=== PATIENT | male | born 1945 | race Caucasian/White ===

== ENCOUNTER 2017-07-06 12:00 | Emergency (ER) | payer MEDICARE, BC ==
--- NOTE | 2017-07-06 12:41 | EDM.PDOC ---
ED HPI GENERAL MEDICAL PROBLEM - General Chief Complaint: Neuro Symptoms/Deficits Stated Complaint: STROKE? Time Seen by Provider: 07/06/17 12:36 Source of Information: Reports: Patient, Family History Limitations: Reports: No Limitations - History of Present Illness INITIAL COMMENTS - FREE TEXT/NARRATIVE: pt has been dragging hs left leg and he has some numbness in the left hand and weakness on the left arm. Onset: Gradual Duration: Day(s): Location: Reports: Upper Extremity, Left, Lower Extremity, Right Associated Symptoms: Reports: No Other Symptoms - Related Data Allergies Allergy/AdvReac Type Severity Reaction Status Date / Time No Known Allergies Allergy Verified 01/23/16 07:41 Home Meds: Home Meds Aspirin [Children's Aspirin] 81 mg PO DAILY 02/20/15 [History] Hydrochlorothiazide/Lisinopril [Lisinopril-HCTZ 20-25 MG] 1 tab PO DAILY [History] Insulin Glarg,Human.Rec.Analog [LantUS Solostar] 50 unit SUBCUT BEDTIME [History] Insulin Lispro [Humalog] 20 unit SQ TIDMEALS 02/20/15 [History] Latanoprost [Xalatan 0.005% Ophth Soln] 1 drop EYEBOTH BEDTIME 02/20/15 [History ] Levothyroxine Sodium [Synthroid] 150 mcg PO DAILY 02/20/15 [History] Metoprolol Tartrate [Lopressor] 100 mg PO BID 02/20/15 [History] Nitroglycerin [Nitrostat] 0.4 mg SL ASDIRECTED PRN 02/20/15 [History] atorvaSTATin [Lipitor] 40 mg PO BEDTIME 02/20/15 [History] Past Medical History HEENT History: Reports: Cataract, Glaucoma, Impaired Vision Cardiovascular History: Reports: CAD, High Cholesterol, Hypertension, [place], Stents Respiratory History: Reports: None Gastrointestinal History: Reports: Cholelithiasis Genitourinary History: Reports: Diabetic Nephropathy Musculoskeletal History: Reports: None Neurological History: Reports: None Psychiatric History: Reports: None Endocrine/Metabolic History: Reports: Diabetes, Type I, Hypothyroidism Hematologic History: Reports: None Immunologic History: Reports: None Oncologic (Cancer) History: Reports: None Dermatologic History: Reports: None - Infectious Disease History Infectious Disease History: Reports: None - Past Surgical History HEENT Surgical History: Reports: Cataract Surgery Cardiovascular Surgical History: Reports: Coronary Artery Stent GI Surgical History: Reports: Cholecystectomy, Colonoscopy, Hernia, Inguinal Neurological Surgical History: Reports: None Musculoskeletal Surgical History: Reports: Arthroscopic Knee Social & Family History - Family History Family Medical History: Noncontributory - Tobacco Use Smoking Status *Q: Never Smoker Years of Tobacco use: 25 Packs/Tins Daily: 1 Used Tobacco, but Quit: Yes Month Tobacco Last Used: 1987 Second Hand Smoke Exposure: No - Caffeine Use Caffeine Use: Reports: Coffee - Alcohol Use Days Per Week of Alcohol Use: 1 Number of Drinks Per Day: 1 Total Drinks Per Week: 1 - Recreational Drug Use Recreational Drug Use: No ED ROS GENERAL - Review of Systems Review Of Systems: See Below Constitutional: Reports: No Symptoms HEENT: Reports: No Symptoms Respiratory: Reports: Shortness of Breath, Wheezing, Cough Cardiovascular: Reports: No Symptoms Endocrine: Reports: No Symptoms GI/Abdominal: Reports: No Symptoms : Reports: No Symptoms Musculoskeletal: Reports: Other (pain in the left shoulder. ) Skin: Reports: No Symptoms Neurological: Reports: Other (weakness in the left arm and left leg--gradual onset. ) Psychiatric: Reports: No Symptoms Hematologic/Lymphatic: Reports: No Symptoms ED EXAM, NEURO - Physical Exam Exam: See Below Text/Narrative:: pt arrived with weakness in the left arm and left leg. He has been dragging the left leg. Exam Limited By: No Limitations General Appearance: Alert, No Apparent Distress, Other (pt is able to give a good history. ) Ears: Normal TMs Nose: Normal Inspection Throat/Mouth: Normal Inspection Head Exam: Atraumatic Neck: Normal Inspection Respiratory/Chest: No Respiratory Distress, Other (pt is slightly wheezy and is coughing some. He did have a recent course of zithromax. ) Cardiovascular: Regular Rate, Rhythm GI/Abdominal: Soft, Non-Tender (Male) Exam: Deferred Rectal (Males) Exam: Deferred Neurological: Alert, Oriented x 3, Other (pt is dragging his left leg. ) Back Exam: Normal Inspection Extremities: Other ( The left arm and the left leg are definitely weak. ) Psychiatric: Normal Affect Course - Vital Signs Last Recorded V/S: Last Vital Signs Temp 36.8 C 07/06/17 12:25 Pulse 59 L 07/06/17 12:25 Resp 14 03/04/18 12:25 BP 153/72 H 07/06/17 12:25 Pulse Ox 93 L 07/06/17 12:25 - Orders/Labs/Meds Orders: Active Orders 24 hr Category Date Time Status Chest 2V [CR] Stat Exams 07/06/17 12:35 Taken Chest w Cont [CT] Stat Exams 07/06/17 13:48 Taken Head wo Cont [CT] Stat Exams 07/06/17 12:30 Taken Shoulder Comp Lt [CR] Stat Exams 07/06/17 12:37 Taken Iopamidol [Isovue-300 (61%)] Med 07/06/17 14:00 Active 100 ml IV . DIRECTED Sodium Chloride 0.9% [Normal Saline] 100 ml Med 07/06/17 14:00 Active IV ASDIRECTED Medication Orders Sodium Chloride (Normal Saline) 100 mls @ 3 mls/sec IV ASDIRECTED MENDEL Last Admin: 07/06/17 14:26 Dose: 3 mls/sec Iopamidol (Isovue-300 (61%)) 100 ml IV . DIRECTED MENDEL Last Admin: 07/06/17 14:26 Dose: 100 ml Labs: Laboratory Tests 07/06/17 07/06/17 07/06/17 Range/Units 12:41 12:41 13:08 WBC 7.4 (4.5-11.0) K/uL RBC 4.72 (4.30-5.90) M/uL Hgb 14.4 (12.0-15.0) g/dL Hct 42.6 (40.0-54.0) % MCV 90 (80-98) fL MCH 31 (27-31) pg MCHC 34 (32-36) % Plt Count 245 (150-400) K/uL Neut % (Auto) 60 (36-66) % Lymph % (Auto) 29 (24-44) % [place] % (Auto) 10 H (2-6) % Eos % (Auto) 2 (2-4) % Baso % (Auto) 0 (0-1) % Sodium 141 (140-148) mmol/L Potassium 3.6 (3.6-5.2) mmol/L Chloride 105 (100-108) mmol/L Carbon Dioxide 28 (21-32) mmol/L Anion Gap 8.4 (5.0-14.0) mmol/L BUN 19 H (7-18) mg/dL Creatinine 0.9 (0.8-1.3) mg/dL Est Cr Clr Drug Dosing 81.43 mL/min Estimated GFR (MDRD) > 60 (>60) Glucose 194 H (74-106) mg/dL Calcium 9.2 (8.5-10.1) mg/dL Total Bilirubin 0.9 (0.2-1.0) mg/dL AST 20 (15-37) U/L ALT 24 (12-78) U/L Alkaline Phosphatase 54 (46-116) U/L Total Protein 6.4 (6.4-8.2) g/dL Albumin 3.1 L (3.4-5.0) g/dL Globulin 3.3 (2.3-3.5) g/dL Albumin/Globulin Ratio 0.9 L (1.2-2.2) Urine Color Yellow Urine Appearance Clear Urine pH 6.0 (4.5-8.0) Ur Specific [place] 1.020 (1.008-1.030) Urine Protein Negative (NEGATIVE) mg/dL Urine Glucose (UA) 1000 H (NEGATIVE) mg/dL Urine Ketones Negative (NEGATIVE) mg/dL Urine Occult Blood Trace (NEGATIVE) Urine Nitrite Negative (NEGAITVE) Urine Bilirubin Negative (NEGATIVE) Urine Urobilinogen 1 (NORMAL) mg/dL Ur Leukocyte Esterase Negative (NEGATIVE) Urine RBC 5-10 H (0-5) Urine WBC 0-5 (0-5) Ur Epithelial Cells Few Amorphous Sediment Not seen Urine Bacteria Few Urine Mucus Not seen Meds: Medications Generic Name Dose Route Start Last Admin Trade Name Freq PRN Reason Stop Dose Admin Sodium Chloride 100 mls @ 3 mls/sec 07/06/17 14:00 07/06/17 14:26 Normal Saline IV 3 mls/sec ASDIRECTED MENDEL Administration Iopamidol 100 ml 07/06/17 14:00 07/06/17 14:26 Isovue-300 (61%) IV 100 ml . DIRECTED MENDEL Administration - Re-Assessments/Exams Free Text/Narrative Re-Assessment/Exam: 07/06/17 15:46 cat scan of the head shows 2 masses in the rt cerebral area. They do have edema around them. He had a cat scan of the chest which shows a probable hilar mass. His lab work looks good. Departure - Departure Time of Disposition: 15:48 Disposition: DC/Tfer to Acute Hospital 02 Condition: Fair Clinical Impression: Mass of cerebral hemisphere, Mass of left lung, Diabetes - Discharge Information Referrals: Valente Epps MD [Primary Care Provider] - Forms: ED Department Discharge Care Plan Goals: transfer to [facility]. - My Orders Last 24 Hours: My Active Orders 07/06/17 12:30 Head wo Cont [CT] Stat 07/06/17 12:35 Chest 2V [CR] Stat 07/06/17 12:37 Shoulder Comp Lt [CR] Stat 07/06/17 13:48 Chest w Cont [CT] Stat 07/06/17 14:00 Iopamidol [Isovue-300 (61%)] 100 ml IV . DIRECTED Sodium Chloride 0.9% [Normal Saline] 100 ml IV ASDIRECTED - Assessment/Plan Last 24 Hours: My Active Orders 07/06/17 12:30 Head wo Cont [CT] Stat 07/06/17 12:35 Chest 2V [CR] Stat 07/06/17 12:37 Shoulder Comp Lt [CR] Stat 07/06/17 13:48 Chest w Cont [CT] Stat 07/06/17 14:00 Iopamidol [Isovue-300 (61%)] 100 ml IV . DIRECTED Sodium Chloride 0.9% [Normal Saline] 100 ml IV ASDIRECTED
[2017-07-06] MEDS ORDERED: Sodium Chloride 0.9% 100 ML IV SCH (14:00)
[2017-07-06] MEDS ORDERED: Iopamidol 612 MG/ML 100 ML Bottle IV SCH (14:00)
[2017-07-06 16:05] VITALS: BP 151/81
--- NOTE | 2017-07-07 10:47 | CR ---
CHEST: 2 view CLINICAL HISTORY:Cough and wheezing COMPARISON:None FINDINGS: There is streaky density in the left upper lobe. This is suspect for a pneumonic infiltrat e. Heart size and pulmonary vascularity are normal. There are prescribed changes in the aorta.. IMPRESSION: Patchy left upper lobe density, most likely pneumonic infiltrate
--- NOTE | 2017-07-07 10:49 | CR ---
SHOULDER LEFT Clinical history: Pain, limited range of motion Findings: No fracture or dislocation is seen. Articular surfaces are smooth. Impression: Negative
== END 2017-07-06 16:37 ==
LOC: JP.ED 12:00
DX: G93.89 Other specified disorders of brain (principal); R91.8 Other nonspecific abnormal finding of lung field; E78.00 Pure hypercholesterolemia, unspecified; I10 Essential (primary) hypertension; E10.21 Type 1 diabetes mellitus with diabetic nephropathy; E03.9 Hypothyroidism, unspecified; Z87.891 Personal history of nicotine dependence; Z79.82 Long term (current) use of aspirin; Z79.899 Other long term (current) drug therapy
CPT/HCPCS: 36415; 70450; 71046; 71260; 73030; 80053; 81001; 85025; 99285; J7030; Q9967

== ENCOUNTER 2017-08-21 01:24 | Emergency (ER) | payer MEDICARE, BC ==
[2017-08-21 01:36] VITALS: BP 83/49
--- NOTE | 2017-08-21 01:41 | EDM.PDOC ---
ED HPI GENERAL MEDICAL PROBLEM - General Chief Complaint: Respiratory Problem Stated Complaint: [facility] Time Seen by Provider: 08/21/17 01:25 Source of Information: Reports: Patient, EMS, Family History Limitations: Reports: No Limitations - History of Present Illness INITIAL COMMENTS - FREE TEXT/NARRATIVE: 71-year-old male with a recent diagnosis of metastatic lung cancer has started treatment, also was recently in the clinic and received doxycycline. Tonight he was getting up to go to the bathroom when he developed sudden shortness of breath. EMS was called and he was transported with O2 supplementation. surveillance monitor shows atrial fibrillation with a wide complex, the wide-complex correlates with past telemetry and EKGs but the atrial fibrillation is a new rhythm. Denies any new pain, no fever. Onset: Sudden (Thinks symptoms started rather suddenly tonight) Severity: Moderate Associated Symptoms: Reports: Cough, Malaise, Shortness of Breath, Weakness - Related Data Allergies Allergy/AdvReac Type Severity Reaction Status Date / Time No Known Allergies Allergy Verified 08/21/17 01:26 Home Meds: Home Meds Hydrochlorothiazide/Lisinopril [Lisinopril-HCTZ 20-25 MG] 1 tab PO DAILY [History] Insulin Glarg,Human.Rec.Analog [LantUS Solostar] 50 unit SUBCUT BEDTIME [History] Insulin Lispro [Humalog] 60 unit SQ QID 02/20/15 [History] Latanoprost [Xalatan 0.005% Ophth Soln] 1 drop EYEBOTH BEDTIME 02/20/15 [History ] Levothyroxine Sodium [Synthroid] 175 mcg PO DAILY 02/20/15 [History] Metoprolol Tartrate [Lopressor] 100 mg PO BID 02/20/15 [History] Nitroglycerin [Nitrostat] 0.4 mg SL ASDIRECTED PRN 02/20/15 [History] atorvaSTATin [Lipitor] 40 mg PO BEDTIME 02/20/15 [History] Dexamethasone 8 mg PO DAILY 08/21/17 [History] Doxycycline Monohydrate 100 mg PO BID 08/21/17 [History] Folic Acid 1 tab PO DAILY 08/21/17 [History] Prochlorperazine Maleate 10 mg PO Q6H PRN 08/21/17 [History] Tamsulosin [Flomax] 0.4 mg PO DAILY 08/21/17 [History] oxyCODONE 5 mg PO Q6H PRN 08/21/17 [History] Past Medical History HEENT History: Reports: Cataract, Glaucoma, Impaired Vision Cardiovascular History: Reports: CAD, High Cholesterol, Hypertension, [place], Stents Respiratory History: Reports: None Gastrointestinal History: Reports: Cholelithiasis Genitourinary History: Reports: Diabetic Nephropathy Musculoskeletal History: Reports: None Neurological History: Reports: None Psychiatric History: Reports: None Endocrine/Metabolic History: Reports: Diabetes, Type I, Hypothyroidism Hematologic History: Reports: None Immunologic History: Reports: None Oncologic (Cancer) History: Reports: None Dermatologic History: Reports: None - Infectious Disease History Infectious Disease History: Reports: None - Past Surgical History HEENT Surgical History: Reports: Cataract Surgery Cardiovascular Surgical History: Reports: Coronary Artery Stent GI Surgical History: Reports: Cholecystectomy, Colonoscopy, Hernia, Inguinal Neurological Surgical History: Reports: None Musculoskeletal Surgical History: Reports: Arthroscopic Knee Social & Family History - Family History Family Medical History: Noncontributory - Tobacco Use Smoking Status *Q: Never Smoker Years of Tobacco use: 25 Packs/Tins Daily: 1 Used Tobacco, but Quit: Yes Month/Year Tobacco Last Used: 1987 Second Hand Smoke Exposure: No - Caffeine Use Caffeine Use: Reports: Coffee - Alcohol Use Days Per Week of Alcohol Use: 1 Number of Drinks Per Day: 1 Total Drinks Per Week: 1 - Recreational Drug Use Recreational Drug Use: No ED ROS GENERAL - Review of Systems Review Of Systems: See Below Constitutional: Reports: Malaise, Weakness, Decreased Appetite HEENT: Reports: No Symptoms Respiratory: Reports: Shortness of Breath, Cough Cardiovascular: Denies: Chest Pain GI/Abdominal: Denies: Nausea, Vomiting ED EXAM, GENERAL - Physical Exam Exam: See Below Exam Limited By: No Limitations General Appearance: Alert, No Apparent Distress Eye Exam: Bilateral Eye: EOMI Throat/Mouth: Normal Inspection Respiratory/Chest: No Respiratory Distress, Lungs Clear Cardiovascular: Tachycardia, Irregularly Irregular GI/Abdominal: Soft, Non-Tender Extremities: No Pedal Edema Neurological: Alert, Oriented Psychiatric: Flat Affect Skin Exam: Warm, Dry Course - Vital Signs Last Recorded V/S: Last Vital Signs Temp 97.5 F 08/21/17 01:30 Pulse 124 H 08/21/17 01:30 Resp 19 08/21/17 01:30 BP 83/49 L 08/21/17 01:30 Pulse Ox 94 L 08/21/17 01:30 - Orders/Labs/Meds Orders: Active Orders 24 hr Category Date Time Status Chest 1V Frontal [CR] Stat Exams 08/21/17 01:36 Taken Labs: Laboratory Tests 08/21/17 08/21/17 Range/Units 01:36 01:40 WBC 9.7 (4.5-11.0) K/uL RBC 4.39 (4.30-5.90) M/uL Hgb 13.7 (12.0-15.0) g/dL Hct 39.7 L (40.0-54.0) % MCV 90 (80-98) fL MCH 31 (27-31) pg MCHC 35 (32-36) % Plt Count 69 L (150-400) K/uL Neut % (Auto) 83 H (36-66) % Lymph % (Auto) 11 L (24-44) % [place] % (Auto) 6 (2-6) % Eos % (Auto) 0 L (2-4) % Baso % (Auto) 0 (0-1) % Sodium 136 L (140-148) mmol/L Potassium 4.0 (3.6-5.2) mmol/L Chloride 100 (100-108) mmol/L Carbon Dioxide 25 (21-32) mmol/L Anion Gap 15.0 H (5.0-14.0) mmol/L BUN 25 H (7-18) mg/dL Creatinine 1.1 (0.8-1.3) mg/dL Est Cr Clr Drug Dosing 66.63 mL/min Estimated GFR (MDRD) > 60 (>60) Glucose 290 H (74-106) mg/dL Calcium 8.9 (8.5-10.1) mg/dL Troponin I 0.233 H* (0.000-0.056) ng/mL Meds: Medications Discontinued Medications Generic Name Dose Route Start Last Admin Trade Name Freq PRN Reason Stop Dose Admin Sodium Chloride 1,000 mls @ 500 mls/hr 08/21/17 02:00 08/21/17 01:55 Normal Saline IV 500 mls/hr ASDIRECTED MENDEL Administration - Re-Assessments/Exams Free Text/Narrative Re-Assessment/Exam: 08/21/17 02:15 Discussed this case with the hospitalist in [facility], Doctor Devora kindly accepted him in transfer. CBC was relatively normal, BMP showed a slightly elevated BUN and a glucose of 290. Troponin was elevated at 0.23. IV fluids were initiated and the patient was arranged for transfer. Departure - Departure Time of Disposition: 02:57 Disposition: DC/Tfer to Other 70 Condition: Poor Clinical Impression: Atrial fibrillation with rapid ventricular response Metastatic primary lung cancer Qualifiers: Laterality: left Qualified Code(s): C34.92 - Malignant neoplasm of unspecified part of left bronchus or lung - Discharge Information Referrals: Valente Epps MD [Primary Care Provider] - Forms: ED Department Discharge Care Plan Goals: Patient is be transferred by EMS to [facility] for oncology and cardiology evaluation. - My Orders Last 24 Hours: My Active Orders 08/21/17 01:36 Chest 1V Frontal [CR] Stat - Assessment/Plan Last 24 Hours: My Active Orders 08/21/17 01:36 Chest 1V Frontal [CR] Stat
[2017-08-21] MEDS ORDERED: Sodium Chloride 0.9% 1,000 ML IV SCH (02:00)
--- NOTE | 2017-08-21 09:27 | CR ---
Chest 1V Frontal HISTORY: Dyspnea COMPARISON: CT chest 07/06/2017 FINDINGS: Consolidative change in the left upper lobe this was present on the prior CT scan this has not completely resolved. This could be inflammatory however neoplastic process not entirely excluded. The right lung is clear. No acute congestive change. Cardiac size stable. No effusions. Impression: Consolidative change left perihilar region increased from chest radiograph 07/06/2017. This could be in flammatory. Neoplasm not excluded recommend continued follow-up to confirm improvement as well as cor relation with clinical symptomology if this fits with typical pneumonia symptomology.
== END 2017-08-21 03:00 | disposition other institution (70) ==
LOC: JP.ED 01:24
DX: I48.91 Unspecified atrial fibrillation (principal); C34.92 Malignant neoplasm of unspecified part of left bronchus or lung; E78.00 Pure hypercholesterolemia, unspecified; I10 Essential (primary) hypertension; I25.2 Old myocardial infarction; E10.21 Type 1 diabetes mellitus with diabetic nephropathy; E03.9 Hypothyroidism, unspecified; Z79.899 Other long term (current) drug therapy; Z87.891 Personal history of nicotine dependence
CPT/HCPCS: 36415; 71045; 80048; 84484; 85025; 96360; 99285; J7040

== ENCOUNTER 2017-11-09 10:54 | Inpatient (IN) | payer MEDICARE, BC ==
--- NOTE | 2017-11-09 11:35 | EDM.PDOC ---
ED HPI GENERAL MEDICAL PROBLEM - General Chief Complaint: General Stated Complaint: MEDICAL [facility] Time Seen by Provider: 11/09/17 11:13 Source of Information: Reports: Patient, Family, RN Notes Reviewed History Limitations: Reports: Physical Impairment - History of Present Illness INITIAL COMMENTS - FREE TEXT/NARRATIVE: 72-year-old gentleman presents to the emergency department today via EMS services for increasing weakness and confusion with combative behaviors. He has a known history of lung cancer with metastases to the brain has completed 10 round dose of radiation therapy and is currently on chemotherapy with one dose remaining. This morning his had difficulty getting him out of bed feels she can no longer take care of him at home - Related Data Allergies Allergy/AdvReac Type Severity Reaction Status Date / Time No Known Allergies Allergy Verified 10/29/17 12:08 Home Meds: Home Meds Insulin Glarg,Human.Rec.Analog [LantUS Solostar] 50 unit SUBCUT BEDTIME [History] Insulin Lispro [Humalog] 60 unit SQ QID 02/20/15 [History] Latanoprost [Xalatan 0.005% Ophth Soln] 1 drop EYEBOTH BEDTIME 02/20/15 [History ] Levothyroxine Sodium [Synthroid] 175 mcg PO DAILY 02/20/15 [History] Metoprolol Tartrate [Lopressor] 75 mg PO BID 02/20/15 [History] Nitroglycerin [Nitrostat] 0.4 mg SL ASDIRECTED PRN 02/20/15 [History] Dexamethasone 8 mg PO DAILY 08/21/17 [History] Folic Acid 1 tab PO DAILY 08/21/17 [History] Prochlorperazine Maleate 10 mg PO Q6H PRN 08/21/17 [History] Tamsulosin [Flomax] 0.4 mg PO DAILY 08/21/17 [History] oxyCODONE 5 mg PO Q6H PRN 08/21/17 [History] Magnesium Chloride [Mag-64] 64 mg PO DAILY 11/09/17 [History] Rivaroxaban [Xarelto] 20 mg PO DAILY 11/09/17 [History] Past Medical History HEENT History: Reports: Cataract, Glaucoma, Impaired Vision Cardiovascular History: Reports: CAD, High Cholesterol, Hypertension, CT, Stents Gastrointestinal History: Reports: Cholelithiasis Genitourinary History: Reports: Diabetic Nephropathy Other Neuro History: brain lesions Endocrine/Metabolic History: Reports: Diabetes, Type I, Hypothyroidism Oncologic (Cancer) History: Reports: Lung Other Oncologic History: stage 4 lung cancer - Past Surgical History HEENT Surgical History: Reports: Cataract Surgery Cardiovascular Surgical History: Reports: Coronary Artery Stent GI Surgical History: Reports: Cholecystectomy, Colonoscopy, Hernia, Inguinal Neurological Surgical History: Reports: None Musculoskeletal Surgical History: Reports: Arthroscopic Knee Social & Family History - Family History Family Medical History: Noncontributory - Tobacco Use Smoking Status *Q: Unknown Ever Smoked - Caffeine Use Caffeine Use: Reports: Coffee - Recreational Drug Use Recreational Drug Use: No ED ROS GENERAL - Review of Systems Review Of Systems: Unable To Obtain ED EXAM, GENERAL - Physical Exam Exam: See Below Free Text/Narrative:: General: Elderly male, ill-appearing, alert and oriented x0 HEENT: head is atraumatic normocephalic, eyes pupils equal round reactive to light, sclera clear no conjunctivitis appreciated. Ears tympanic membranes clear and simon landmarks and light reflex are present bilaterally canals are clear. Nose no septal deviation, nares are clear, no blood present. Mouth mucosa is moist and pink no erythema or exudate noted in soft palate, tongue is midline uvula is midline, dentition is intact. Neck: Supple no thyromegaly no tracheal deviation. Nodes: Cervical nodes subclavicular nodes nontender no palpable lymphadenopathy noted. Lungs: clear to auscultation bilaterally with symmetrical respirations, no adventitious noise appreciated. CV: Regular rate and rhythm S1 and S2 appreciated no murmurs rubs or gallops noted. Abdomen: Soft, nontender, no palpable masses or organomegaly appreciated, no distention no guarding bowel sounds are present, . Neuro: Cranial nerves II through XII grossly intact Skin: Warm and dry, intact Extremities: Tremor is noted in the right hand, No lower extremity edema appreciated, pedal pulse is +2. Course - Vital Signs Last Recorded V/S: Last Vital Signs Temp 96.7 F 11/09/17 11:02 Pulse 97 11/09/17 11:02 Resp 16 11/09/17 11:02 BP 110/71 11/09/17 11:02 Pulse Ox 94 L 11/09/17 11:02 - Orders/Labs/Meds Orders: Active Orders 24 hr Category Date Time Status UA W/MICROSCOPIC [URIN] Urgent Lab 11/09/17 12:59 Ordered Labs: Laboratory Tests 11/09/17 11/09/17 11/09/17 Range/Units 11:45 11:45 12:48 WBC 3.8 L (4.5-11.0) K/uL RBC 2.21 L (4.30-5.90) M/uL Hgb 7.4 L D (12.0-15.0) g/dL Hct 22.2 L (40.0-54.0) % MCV 101 H (80-98) fL MCH 34 H (27-31) pg MCHC 33 (32-36) % Plt Count 55 L (150-400) K/uL Neut % (Auto) 52 (36-66) % Lymph % (Auto) 37 (24-44) % [place] % (Auto) 11 H (2-6) % Eos % (Auto) 0 L (2-4) % Baso % (Auto) 0 (0-1) % Sodium 141 (140-148) mmol/L Potassium 3.7 (3.6-5.2) mmol/L Chloride 106 (100-108) mmol/L Carbon Dioxide 26 (21-32) mmol/L Anion Gap 8.8 (5.0-14.0) mmol/L BUN 23 H (7-18) mg/dL Creatinine 0.9 (0.8-1.3) mg/dL Est Cr Clr Drug Dosing 70.35 mL/min Estimated GFR (MDRD) > 60 (>60) Glucose 219 H (74-106) mg/dL Lactic Acid 4.4 H (0.4-2.0) mmol/L Calcium 9.5 (8.5-10.1) mg/dL Total Bilirubin 0.7 (0.2-1.0) mg/dL AST 17 (15-37) U/L ALT 23 (12-78) U/L Alkaline Phosphatase 50 (46-116) U/L Total Protein 5.6 L (6.4-8.2) g/dL Albumin 2.6 L (3.4-5.0) g/dL Globulin 3.0 (2.3-3.5) g/dL Albumin/Globulin Ratio 0.9 L (1.2-2.2) Urine Color Urine Appearance Urine pH (4.5-8.0) Ur Specific [place] (1.008-1.030) Urine Protein (NEGATIVE) mg/dL Urine Glucose (UA) (NEGATIVE) mg/dL Urine Ketones (NEGATIVE) mg/dL Urine Occult Blood (NEGATIVE) Urine Nitrite (NEGAITVE) Urine Bilirubin (NEGATIVE) Urine Urobilinogen (NORMAL) mg/dL Ur Leukocyte Esterase (NEGATIVE) Urine RBC (0-5) Urine WBC (0-5) Ur Epithelial Cells Amorphous Sediment Urine Bacteria Urine Mucus 11/09/17 Range/Units 12:59 WBC (4.5-11.0) K/uL RBC (4.30-5.90) M/uL Hgb (12.0-15.0) g/dL Hct (40.0-54.0) % MCV (80-98) fL MCH (27-31) pg MCHC (32-36) % Plt Count (150-400) K/uL Neut % (Auto) (36-66) % Lymph % (Auto) (24-44) % [place] % (Auto) (2-6) % Eos % (Auto) (2-4) % Baso % (Auto) (0-1) % Sodium (140-148) mmol/L Potassium (3.6-5.2) mmol/L Chloride (100-108) mmol/L Carbon Dioxide (21-32) mmol/L Anion Gap (5.0-14.0) mmol/L BUN (7-18) mg/dL Creatinine (0.8-1.3) mg/dL Est Cr Clr Drug Dosing mL/min Estimated GFR (MDRD) (>60) Glucose (74-106) mg/dL Lactic Acid (0.4-2.0) mmol/L Calcium (8.5-10.1) mg/dL Total Bilirubin (0.2-1.0) mg/dL AST (15-37) U/L ALT (12-78) U/L Alkaline Phosphatase (46-116) U/L Total Protein (6.4-8.2) g/dL Albumin (3.4-5.0) g/dL Globulin (2.3-3.5) g/dL Albumin/Globulin Ratio (1.2-2.2) Urine Color Yellow Urine Appearance Clear Urine pH 6.5 (4.5-8.0) Ur Specific [place] 1.015 (1.008-1.030) Urine Protein Negative (NEGATIVE) mg/dL Urine Glucose (UA) 100 H (NEGATIVE) mg/dL Urine Ketones Negative (NEGATIVE) mg/dL Urine Occult Blood Negative (NEGATIVE) Urine Nitrite Negative (NEGAITVE) Urine Bilirubin Negative (NEGATIVE) Urine Urobilinogen Normal (NORMAL) mg/dL Ur Leukocyte Esterase Negative (NEGATIVE) Urine RBC 0-5 (0-5) Urine WBC 0-5 (0-5) Ur Epithelial Cells Few Amorphous Sediment Not seen Urine Bacteria Few Urine Mucus Not seen Departure - Departure Time of Disposition: 14:02 Disposition: Admitted As Inpatient 65 Condition: Poor Clinical Impression: Metastatic primary lung cancer Qualifiers: Laterality: left Qualified Code(s): C34.92 - Malignant neoplasm of unspecified part of left bronchus or lung - Discharge Information Referrals: PCP,None [Primary Care Provider] - Forms: ED Department Discharge - My Orders Last 24 Hours: My Active Orders 11/09/17 12:59 UA W/MICROSCOPIC [URIN] Urgent - Assessment/Plan Last 24 Hours: My Active Orders 11/09/17 12:59 UA W/MICROSCOPIC [URIN] Urgent Plan: Assessment Acuity = acute Site and laterality = weakness with behavioral outbursts complicated patient with known history stage IV lung cancer with metastases to the brain Etiology = progression of cancer Manifestations = confusion Location of injury = Home Lab values = WBC low at 3.8 consistent leukopenia hemoglobin 7.4 consistent with macro chromic anemia platelets low at 55 consistent thrombocytopenia lactic acid elevated at 4.4 consistent lactic acidosis albumin low at 2.6 consistent with hypoalbuminemia, urinalysis unremarkable Plan Called discussed case with hospitalist steel division supervisor he agreed to come and evaluate the patient for admission I did discuss with family the need for group home placement for more supportive care and resources as well as consider hospice consult This note was dictated using [employer] voice recognition software please call with any questions on syntax or grammar.
--- NOTE | 2017-11-09 14:27 | PCM.HP ---
H&P History of Present Illness - General Date of Service: 11/09/17 Admit Problem/Dx: Admission Diagnosis/Problem Admission Diagnosis/Problem Pancytopenia Source of Information: Patient, Family, Provider History Limitations: Reports: Altered Mental Status - History of Present Illness Initial Comments - Free Text/Narative: Keith presents to the emergency room today with generalized weakness. He is not very talkative and says he feels fine so most of his history is gathered from his . She reports that he has been slowly going downhill over several months. He has become progressively weak and had intermittent episodes of agitation. His most recent chemotherapy was about one week ago. He has had previous radiation to his brain for metastatic lung cancer. Yesterday his dexamethasone was reduced from 8-6 mg daily. Today she reports that he was so weak she could not get him out of bed. She has noticed some difficulty with constipation but otherwise has not noticed much out of the ordinary. He does not currently endorse shortness of breath, chest pain, abdominal pain or nausea. She does not feel like he would be safe at home at this time because he is so weak. She has not noticed any fevers or shaking chills. Workup in the emergency room has revealed pancytopenia presumably secondary to his chemotherapy. He is very weak and unable to stand on his own. There is no sign of infection as of now. Because of his profound weakness he will need to be admitted for hydration with suspected dehydration as well as further monitoring and strengthening. - Related Data Allergies/Adverse Reactions: Allergies Allergy/AdvReac Type Severity Reaction Status Date / Time No Known Allergies Allergy Verified 10/29/17 12:08 Home Medications: Home Meds Insulin Glarg,Human.Rec.Analog [LantUS Solostar] 32 unit SUBCUT BEDTIME [History] Insulin Lispro [Humalog] 4 unit SQ TIDAC 02/20/15 [History] Latanoprost [Xalatan 0.005% Ophth Soln] 1 drop EYEBOTH BEDTIME 02/20/15 [History ] Levothyroxine Sodium [Synthroid] 175 mcg PO DAILY 02/20/15 [History] Nitroglycerin [Nitrostat] 0.4 mg SL ASDIRECTED PRN 02/20/15 [History] Dexamethasone 6 mg PO DAILY 08/21/17 [History] Folic Acid 1 tab PO DAILY 08/21/17 [History] Tamsulosin [Flomax] 0.4 mg PO DAILY 08/21/17 [History] Magnesium Chloride [Mag-64] 64 mg PO DAILY 11/09/17 [History] Metoprolol Succinate 75 mg PO DAILY 11/09/17 [History] Rivaroxaban [Xarelto] 20 mg PO DAILY 11/09/17 [History] Past Medical History HEENT History: Reports: Cataract, Glaucoma, Impaired Vision Cardiovascular History: Reports: CAD, High Cholesterol, Hypertension, [place], Stents Respiratory History: Reports: None Gastrointestinal History: Reports: Cholelithiasis Genitourinary History: Reports: Diabetic Nephropathy Musculoskeletal History: Reports: None Neurological History: Reports: None Other Neuro History: brain lesions Psychiatric History: Reports: None Endocrine/Metabolic History: Reports: Diabetes, Type I, Hypothyroidism Hematologic History: Reports: None Immunologic History: Reports: None Oncologic (Cancer) History: Reports: Lung Other Oncologic History: stage 4 lung cancer Dermatologic History: Reports: None - Infectious Disease History Infectious Disease History: Reports: None - Past Surgical History HEENT Surgical History: Reports: Cataract Surgery Cardiovascular Surgical History: Reports: Coronary Artery Stent GI Surgical History: Reports: Cholecystectomy, Colonoscopy, Hernia, Inguinal Neurological Surgical History: Reports: None Musculoskeletal Surgical History: Reports: Arthroscopic Knee Social & Family History - Family History Family Medical History: Noncontributory - Tobacco Use Smoking Status *Q: Unknown Ever Smoked - Caffeine Use Caffeine Use: Reports: Coffee - Alcohol Use Alcohol Use History: No - Recreational Drug Use Recreational Drug Use: No H&P Review of Systems - Review of Systems: Review Of Systems: See Below Free Text/Narrative: A complete 12 point review of systems was obtained. Pertinent positives and negatives are noted in the history of present illness. All other systems were reviewed and were negative except as noted. Exam - Exam Exam: See Below - Vital Signs Vital Signs: Last Vital Signs Temp 35.9 C 11/09/17 11:02 Pulse 97 11/09/17 11:02 Resp 16 11/09/17 11:02 BP 110/71 11/09/17 11:02 Pulse Ox 94 L 11/09/17 11:02 Weight: 68.039 kg - Exam Quality Assessment: No: Supplemental Oxygen General: Alert, Cooperative. No: Oriented, Mild Distress HEENT: No: Mucosa Moist & [place] (dry), Scleral Icterus Neck: Supple, Trachea Midline. No: Lymphadenopathy, Thyromegaly Lungs: Clear to Auscultation, Normal Respiratory Effort Cardiovascular: Regular Rate, Regular Rhythm. No: Systolic Murmur GI/Abdominal Exam: Normal Bowel Sounds, Soft, Non-Tender, No Distention Extremities: No Pedal Edema. No: Increased Warmth Peripheral Pulses: 2+: Dorsalis Pedis (L), Dorsalis Pedis (R) Skin: Warm, Dry, Intact Neuro Extensive - Mental Status: Alert, Nl Response to Commands. No: Oriented x3 Neuro Extensive - Motor, Sensory, Reflexes: CN II-XII Intact. No: Dysarthria, Tremor Psychiatric: Alert. No: Anxious - Patient Data Lab Results Last 24 hrs: Laboratory Results - last 24 hr 11/09/17 11/09/17 11/09/17 Range/Units 11:45 11:45 12:48 WBC 3.8 L (4.5-11.0) K/uL RBC 2.21 L (4.30-5.90) M/uL Hgb 7.4 L D (12.0-15.0) g/dL Hct 22.2 L (40.0-54.0) % MCV 101 H (80-98) fL MCH 34 H (27-31) pg MCHC 33 (32-36) % Plt Count 55 L (150-400) K/uL Neut % (Auto) 52 (36-66) % Lymph % (Auto) 37 (24-44) % [place] % (Auto) 11 H (2-6) % Eos % (Auto) 0 L (2-4) % Baso % (Auto) 0 (0-1) % Sodium 141 (140-148) mmol/L Potassium 3.7 (3.6-5.2) mmol/L Chloride 106 (100-108) mmol/L Carbon Dioxide 26 (21-32) mmol/L Anion Gap 8.8 (5.0-14.0) mmol/L BUN 23 H (7-18) mg/dL Creatinine 0.9 (0.8-1.3) mg/dL Est Cr Clr Drug Dosing 70.35 mL/min Estimated GFR (MDRD) > 60 (>60) Glucose 219 H (74-106) mg/dL Lactic Acid 4.4 H (0.4-2.0) mmol/L Calcium 9.5 (8.5-10.1) mg/dL Total Bilirubin 0.7 (0.2-1.0) mg/dL AST 17 (15-37) U/L ALT 23 (12-78) U/L Alkaline Phosphatase 50 (46-116) U/L Total Protein 5.6 L (6.4-8.2) g/dL Albumin 2.6 L (3.4-5.0) g/dL Globulin 3.0 (2.3-3.5) g/dL Albumin/Globulin Ratio 0.9 L (1.2-2.2) Urine Color Urine Appearance Urine pH (4.5-8.0) Ur Specific [place] (1.008-1.030) Urine Protein (NEGATIVE) mg/dL Urine Glucose (UA) (NEGATIVE) mg/dL Urine Ketones (NEGATIVE) mg/dL Urine Occult Blood (NEGATIVE) Urine Nitrite (NEGAITVE) Urine Bilirubin (NEGATIVE) Urine Urobilinogen (NORMAL) mg/dL Ur Leukocyte Esterase (NEGATIVE) Urine RBC (0-5) Urine WBC (0-5) Ur Epithelial Cells Amorphous Sediment Urine Bacteria Urine Mucus 11/09/17 Range/Units 12:59 WBC (4.5-11.0) K/uL RBC (4.30-5.90) M/uL Hgb (12.0-15.0) g/dL Hct (40.0-54.0) % MCV (80-98) fL MCH (27-31) pg MCHC (32-36) % Plt Count (150-400) K/uL Neut % (Auto) (36-66) % Lymph % (Auto) (24-44) % [place] % (Auto) (2-6) % Eos % (Auto) (2-4) % Baso % (Auto) (0-1) % Sodium (140-148) mmol/L Potassium (3.6-5.2) mmol/L Chloride (100-108) mmol/L Carbon Dioxide (21-32) mmol/L Anion Gap (5.0-14.0) mmol/L BUN (7-18) mg/dL Creatinine (0.8-1.3) mg/dL Est Cr Clr Drug Dosing mL/min Estimated GFR (MDRD) (>60) Glucose (74-106) mg/dL Lactic Acid (0.4-2.0) mmol/L Calcium (8.5-10.1) mg/dL Total Bilirubin (0.2-1.0) mg/dL AST (15-37) U/L ALT (12-78) U/L Alkaline Phosphatase (46-116) U/L Total Protein (6.4-8.2) g/dL Albumin (3.4-5.0) g/dL Globulin (2.3-3.5) g/dL Albumin/Globulin Ratio (1.2-2.2) Urine Color Yellow Urine Appearance Clear Urine pH 6.5 (4.5-8.0) Ur Specific [place] 1.015 (1.008-1.030) Urine Protein Negative (NEGATIVE) mg/dL Urine Glucose (UA) 100 H (NEGATIVE) mg/dL Urine Ketones Negative (NEGATIVE) mg/dL Urine Occult Blood Negative (NEGATIVE) Urine Nitrite Negative (NEGAITVE) Urine Bilirubin Negative (NEGATIVE) Urine Urobilinogen Normal (NORMAL) mg/dL Ur Leukocyte Esterase Negative (NEGATIVE) Urine RBC 0-5 (0-5) Urine WBC 0-5 (0-5) Ur Epithelial Cells Few Amorphous Sediment Not seen Urine Bacteria Few Urine Mucus Not seen Result Diagrams: 11/09/17 11:45 11/09/17 11:45 *Q Meaningful Use (ADM) - VTE Risk Assess *Q Each Risk Factor Represents 1 Point: None Total Score 1 Point Risk Factors: 0 Each Risk Factor Represents 2 Points: Age 60 - 74 Years, Malignancy (present or previous) Total Score 2 Point Risk Factors: 4 Each Risk Factor Represents 3 Points: History of DVT/PE Total Score 3 Point Risk Factors: 3 Each Risk Factor Represents 5 Points: None Total Score 5 Point Risk Factors: 0 Venous Thromboembolism Risk Factor Score *Q: 7 - Problem List (1) Pancytopenia SNOMED Code(s): 170101218 ICD Code: D61.818 - OTHER PANCYTOPENIA Status: Acute Current Visit: Yes (2) Weakness SNOMED Code(s): 01798762 ICD Code: R53.1 - WEAKNESS Status: Acute Current Visit: Yes (3) Metastatic primary lung cancer SNOMED Code(s): 08320467, 572597317 ICD Code: C34.90 - MALIGNANT NEOPLASM OF UNSP PART OF UNSP BRONCHUS OR LUNG Status: Chronic Current Visit: Yes Qualifiers: Laterality: left Qualified Code(s): C34.92 - Malignant neoplasm of unspecified part of left bronchus or lung (4) Diabetes mellitus, insulin dependent (IDDM), controlled SNOMED Code(s): 73319556 ICD Code: E11.9 - TYPE 2 DIABETES MELLITUS WITHOUT COMPLICATIONS; Z79.4 - FDC (CURRENT) USE OF INSULIN Status: Chronic Current Visit: Yes Problem List Initiated/Reviewed/Updated: Yes Orders Last 24hrs: Active Orders 24 hr Category Date Time Status Patient Status Manage Transfer [TRANSFER] Routine ADT 11/09/17 14:18 Ordered UA W/MICROSCOPIC [URIN] Urgent Lab 11/09/17 12:59 Ordered Sodium Chloride 0.9% [Normal Saline] 1,000 ml Med 11/09/17 14:30 Ordered IV ASDIRECTED Resuscitation Status Routine Resus Stat 11/09/17 14:20 Ordered Medication Orders Sodium Chloride (Normal Saline) 1,000 mls @ 125 mls/hr IV ASDIRECTED MENDEL Assessment/Plan Comment:: ASSESSMENT AND PLAN - Pancytopenia - presumably secondary to chemotherapy. Low hemoglobin may be contributing to weakness. Currently hemoglobin is greater than 7 to hold off on transfusion at this time. -Repeat labs in the morning -Transfuse if hemoglobin less than 7 or platelets less than 10,000 -Broad-spectrum antibiotics if he spikes a fever Generalized weakness - likely multifactorial in the setting of chemotherapy for metastatic lung cancer as well as a contribution from anemia and slow deconditioning. 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 Most recent chemotherapy was about one week ago. At this point the patient feels like he wants to continue with his chemotherapy. -Outpatient follow-up Insulin-dependent diabetes mellitus - sugars have slowly been decreasing with morning blood sugar around 100 today. His has been cutting back on the amount of insulin he's been getting as the sugars have been declining. -Decrease bedtime dose of long-acting insulin to 25 units -3 units scheduled with meals -Low-dose sliding scale History of DVT - chronically anticoagulated. -Continue DOAC Maintenance issues - - DVT prophylaxis - rivaroxaban - GI prophylaxis - not indicated - Nutrition - regular - Swan catheter - placed in the emergency room because of profound weakness CODE STATUS - DNR/DNI Admission justification - This patient will be admitted for inpatient services and is medically appropriate meeting medical necessity for inpatient admission as outlined in my documentation. I reasonably expect the patient will require inpatient services that span a period time over 2 midnights. I reasonably expect this patient to be discharged or transferred within 96 hours after admission to the [facility]. Patient is weak, dehydrated and has multiple laboratory abnormalities. I do not anticipate improvement/resolution of difficulties in less than 2 days. Disposition - anticipate discharge possibly to home with home care versus long term depending on strengthening Primary care physician - Dr Mich Brody M.D.
[2017-11-09] MEDS ORDERED: Sodium Chloride 0.9% 1,000 ML IV SCH (14:30)
[2017-11-09] MEDS ORDERED: FOLIC ACID PO SCH (15:03)
[2017-11-09] MEDS ORDERED: Ondansetron 4 MG/2 ML SDV IV PRN (15:03)
[2017-11-09] MEDS ORDERED: Magnesium Hydroxide 400 MG/5 ML Susp 30 ML Cup PO PRN (15:03)
[2017-11-09] MEDS ORDERED: Polyethylene Glycol 3350 Powder 17 GM Packet PO PRN (15:03)
[2017-11-09] MEDS ORDERED: oxyCODONE 5 MG Tab PO PRN (15:03)
[2017-11-09] MEDS ORDERED: Acetaminophen 325 MG Tab PO PRN (15:03)
[2017-11-09] MEDS ORDERED: Non-Formulary Medication 1 Each (Levothyroxine Sodium [Synthroid] 175 MCG) PO SCH (15:03)
[2017-11-09] MEDS ORDERED: Ondansetron 4 MG Tab.DIS PO PRN (15:03)
[2017-11-09] MEDS: Dexamethasone 4 MG Tab PO SCH (16:53)
[2017-11-09] MEDS: Folic Acid 1 MG Tab PO SCH (16:54)
[2017-11-09] MEDS: Tamsulosin 0.4 MG Cap.ER PO SCH (16:54)
[2017-11-09] MEDS: Insulin Aspart 100 Units/ML 3 ML Pen SUBCUT SCH ×3 (16:54→21:48)
[2017-11-09] MEDS ORDERED: Rivaroxaban 10 MG Tab PO SCH (17:00)
[2017-11-09] MEDS ORDERED: Haloperidol Lactate 5 MG/ML SDV IVPUSH PRN (17:14)
[2017-11-09] MEDS: Melatonin 3 MG Tab PO SCH (21:47)
[2017-11-09] MEDS: Latanoprost 0.005% Ophth Soln 2.5 ML Bottle EYEBOTH SCH (21:48)
[2017-11-09] MEDS: Insulin Detemir 100 Units/ML 3 ML Pen SUBCUT SCH (21:49)
[2017-11-10] MEDS ORDERED: Non-Formulary Medication 1 Each (Rivaroxaban [Xarelto] 20 MG) PO SCH (09:00)
[2017-11-10] MEDS ORDERED: Metoprolol Succinate 50 MG Tab.ER PO SCH (09:00)
[2017-11-10] MEDS ORDERED: Dexamethasone 4 MG Tab PO SCH (09:00)
[2017-11-10] MEDS: Insulin Aspart 100 Units/ML 3 ML Pen SUBCUT SCH ×7 (09:07→22:15)
[2017-11-10] MEDS: Divalproex Sodium Delayed-Release 250 MG Tab.CR PO SCH ×3 (09:09→16:09)
[2017-11-10] MEDS: Dexamethasone 4 MG Tab PO SCH ×2 (09:10→16:09)
[2017-11-10] MEDS: Tamsulosin 0.4 MG Cap.ER PO SCH (09:11)
[2017-11-10] MEDS: Folic Acid 1 MG Tab PO SCH (09:12)
--- NOTE | 2017-11-10 11:15 | PCM.PN ---
- General Info Date of Service: 11/10/17 Subjective Update: This patient was admitted yesterday with progressive weakness secondary to underlying metastatic lung cancer and recent chemotherapy. He was found to have pancytopenia, likely secondary to the chemotherapy. After hydration he is feeling somewhat improved, appetite was better this morning. Overall strength remains very poor and he requires significant assistance with transfers and ambulation. No significant temperature elevations thus far and he has remained hemodynamically stable. Hemoglobin low at 6.7 this morning, currently receiving transfusion of one unit of red blood cells. Functional Status: Reports: Pain Controlled, Tolerating Diet - Review of Systems General: Reports: Weakness. Denies: Fever, Chills Pulmonary: Reports: No Symptoms Cardiovascular: Reports: No Symptoms Gastrointestinal: Reports: No Symptoms - Patient Data Vitals - Most Recent: Last Vital Signs Temp 94.8 F L 11/10/17 10:45 Pulse 81 11/10/17 10:45 Resp 16 11/10/17 10:45 BP 114/72 11/10/17 10:45 Pulse Ox 98 11/10/17 10:45 Weight - Most Recent: 193 lb I&O - Last 24 Hours: Intake & Output 11/09/17 11/10/17 11/10/17 22:59 06:59 14:59 Intake Total 600 467 120 Output Total 500 500 Balance 100 -33 120 Lab Results Last 24 Hours: Laboratory Results - last 24 hr 11/09/17 11/09/17 11/09/17 Range/Units 11:45 11:45 12:48 WBC 3.8 L (4.5-11.0) K/uL RBC 2.21 L (4.30-5.90) M/uL Hgb 7.4 L D (12.0-15.0) g/dL Hct 22.2 L (40.0-54.0) % MCV 101 H (80-98) fL MCH 34 H (27-31) pg MCHC 33 (32-36) % Plt Count 55 L (150-400) K/uL Neut % (Auto) 52 (36-66) % Lymph % (Auto) 37 (24-44) % Frio % (Auto) 11 H (2-6) % Eos % (Auto) 0 L (2-4) % Baso % (Auto) 0 (0-1) % Sodium 141 (140-148) mmol/L Potassium 3.7 (3.6-5.2) mmol/L Chloride 106 (100-108) mmol/L Carbon Dioxide 26 (21-32) mmol/L Anion Gap 8.8 (5.0-14.0) mmol/L BUN 23 H (7-18) mg/dL Creatinine 0.9 (0.8-1.3) mg/dL Est Cr Clr Drug Dosing 70.35 mL/min Estimated GFR (MDRD) > 60 (>60) Glucose 219 H (74-106) mg/dL Lactic Acid 4.4 H (0.4-2.0) mmol/L Calcium 9.5 (8.5-10.1) mg/dL Magnesium (1.8-2.4) mg/dL Total Bilirubin 0.7 (0.2-1.0) mg/dL AST 17 (15-37) U/L ALT 23 (12-78) U/L Alkaline Phosphatase 50 (46-116) U/L Total Protein 5.6 L (6.4-8.2) g/dL Albumin 2.6 L (3.4-5.0) g/dL Globulin 3.0 (2.3-3.5) g/dL Albumin/Globulin Ratio 0.9 L (1.2-2.2) TSH, Ultra Sensitive (0.358-3.740) uIU/mL Urine Color Urine Appearance Urine pH (4.5-8.0) Ur Specific [place] (1.008-1.030) Urine Protein (NEGATIVE) mg/dL Urine Glucose (UA) (NEGATIVE) mg/dL Urine Ketones (NEGATIVE) mg/dL Urine Occult Blood (NEGATIVE) Urine Nitrite (NEGAITVE) Urine Bilirubin (NEGATIVE) Urine Urobilinogen (NORMAL) mg/dL Ur Leukocyte Esterase (NEGATIVE) Urine RBC (0-5) Urine WBC (0-5) Ur Epithelial Cells Amorphous Sediment Urine Bacteria Urine Mucus Blood Type Gel Antibody Screen Crossmatch 11/09/17 11/10/17 11/10/17 Range/Units 12:59 06:05 06:05 WBC 2.8 L (4.5-11.0) K/uL RBC 2.07 L (4.30-5.90) M/uL Hgb 6.7 L* (12.0-15.0) g/dL Hct 20.9 L (40.0-54.0) % MCV 101 H (80-98) fL MCH 32 H (27-31) pg MCHC 32 (32-36) % Plt Count 52 L (150-400) K/uL Neut % (Auto) (36-66) % Lymph % (Auto) (24-44) % Frio % (Auto) (2-6) % Eos % (Auto) (2-4) % Baso % (Auto) (0-1) % Sodium 141 (140-148) mmol/L Potassium 4.5 (3.6-5.2) mmol/L Chloride 109 H (100-108) mmol/L Carbon Dioxide 28 (21-32) mmol/L Anion Gap 8.5 (5.0-14.0) mmol/L BUN 20 H (7-18) mg/dL Creatinine 0.7 L (0.8-1.3) mg/dL Est Cr Clr Drug Dosing 103.16 mL/min Estimated GFR (MDRD) > 60 (>60) Glucose 161 H (74-106) mg/dL Lactic Acid (0.4-2.0) mmol/L Calcium 9.4 (8.5-10.1) mg/dL Magnesium 1.9 (1.8-2.4) mg/dL Total Bilirubin (0.2-1.0) mg/dL AST (15-37) U/L ALT (12-78) U/L Alkaline Phosphatase (46-116) U/L Total Protein (6.4-8.2) g/dL Albumin (3.4-5.0) g/dL Globulin (2.3-3.5) g/dL Albumin/Globulin Ratio (1.2-2.2) TSH, Ultra Sensitive 0.010 L (0.358-3.740) uIU/mL Urine Color Yellow Urine Appearance Clear Urine pH 6.5 (4.5-8.0) Ur Specific [place] 1.015 (1.008-1.030) Urine Protein Negative (NEGATIVE) mg/dL Urine Glucose (UA) 100 H (NEGATIVE) mg/dL Urine Ketones Negative (NEGATIVE) mg/dL Urine Occult Blood Negative (NEGATIVE) Urine Nitrite Negative (NEGAITVE) Urine Bilirubin Negative (NEGATIVE) Urine Urobilinogen Normal (NORMAL) mg/dL Ur Leukocyte Esterase Negative (NEGATIVE) Urine RBC 0-5 (0-5) Urine WBC 0-5 (0-5) Ur Epithelial Cells Few Amorphous Sediment Not seen Urine Bacteria Few Urine Mucus Not seen Blood Type Gel Antibody Screen Crossmatch 11/10/17 Range/Units 06:05 WBC (4.5-11.0) K/uL RBC (4.30-5.90) M/uL Hgb (12.0-15.0) g/dL Hct (40.0-54.0) % MCV (80-98) fL MCH (27-31) pg MCHC (32-36) % Plt Count (150-400) K/uL Neut % (Auto) (36-66) % Lymph % (Auto) (24-44) % Frio % (Auto) (2-6) % Eos % (Auto) (2-4) % Baso % (Auto) (0-1) % Sodium (140-148) mmol/L Potassium (3.6-5.2) mmol/L Chloride (100-108) mmol/L Carbon Dioxide (21-32) mmol/L Anion Gap (5.0-14.0) mmol/L BUN (7-18) mg/dL Creatinine (0.8-1.3) mg/dL Est Cr Clr Drug Dosing mL/min Estimated GFR (MDRD) (>60) Glucose (74-106) mg/dL Lactic Acid (0.4-2.0) mmol/L Calcium (8.5-10.1) mg/dL Magnesium (1.8-2.4) mg/dL Total Bilirubin (0.2-1.0) mg/dL AST (15-37) U/L ALT (12-78) U/L Alkaline Phosphatase (46-116) U/L Total Protein (6.4-8.2) g/dL Albumin (3.4-5.0) g/dL Globulin (2.3-3.5) g/dL Albumin/Globulin Ratio (1.2-2.2) TSH, Ultra Sensitive (0.358-3.740) uIU/mL Urine Color Urine Appearance Urine pH (4.5-8.0) Ur Specific [place] (1.008-1.030) Urine Protein (NEGATIVE) mg/dL Urine Glucose (UA) (NEGATIVE) mg/dL Urine Ketones (NEGATIVE) mg/dL Urine Occult Blood (NEGATIVE) Urine Nitrite (NEGAITVE) Urine Bilirubin (NEGATIVE) Urine Urobilinogen (NORMAL) mg/dL Ur Leukocyte Esterase (NEGATIVE) Urine RBC (0-5) Urine WBC (0-5) Ur Epithelial Cells Amorphous Sediment Urine Bacteria Urine Mucus Blood Type A POSITIVE Gel Antibody Screen Negative Crossmatch See Detail Med Orders - Current: Current Medications Acetaminophen (Tylenol) 650 mg PO Q4H PRN PRN Reason: Pain (Mild 1-3)/fever Dexamethasone (Dexamethasone) 4 mg PO BIDAC [facility] Last Admin: 11/10/17 09:10 Dose: 4 mg Divalproex Sodium (Divalproex Sodium) 500 mg PO TIDMEALS [facility] Last Admin: 11/10/17 09:09 Dose: 500 mg Folic Acid (Folic Acid) 1 mg PO DAILY [facility] Last Admin: 11/10/17 09:12 Dose: 1 mg Haloperidol Lactate (Haldol) 1 mg IVPUSH Q2H PRN PRN Reason: Agitation Last Admin: 11/09/17 17:22 Dose: 1 mg Insulin Aspart (Novolog) 3 unit SUBCUT TIDMEALS [facility] Last Admin: 11/10/17 09:11 Dose: 3 units Insulin Aspart (Novolog) 0 unit SUBCUT QIDACANDBED [facility]; Protocol Last Admin: 11/10/17 09:07 Dose: Not Given Insulin Detemir (Levemir) 25 unit SUBCUT BEDTIME [facility] Last Admin: 11/09/17 21:49 Dose: 25 units Latanoprost (Xalatan 0.005% Ophth Soln) 0 ml EYEBOTH BEDTIME [facility] Last Admin: 11/09/17 21:48 Dose: 1 drop Levothyroxine Sodium 100 mcg/ (Levothyroxine Sodium 75 mcg) 175 mcg PO ACBREAKFAST [facility] Last Admin: 11/10/17 09:10 Dose: 175 mcg Magnesium Hydroxide (Milk Of Magnesia) 30 ml PO Q12H PRN PRN Reason: Constipation Melatonin (Melatonin) 9 mg PO BEDTIME [facility] Last Admin: 11/09/17 21:47 Dose: 9 mg Metoprolol Succinate 50 mg/ (Metoprolol Succinate 25 mg) 75 mg PO DAILY [facility] Last Admin: 11/10/17 09:12 Dose: 75 mg Ondansetron HCl (Zofran Odt) 4 mg PO Q6H PRN PRN Reason: Nausea able to take PO Ondansetron HCl (Zofran) 4 mg IV Q6H PRN PRN Reason: Nausea/Vomiting Oxycodone HCl (Oxycodone) 5 mg PO Q4H PRN PRN Reason: Pain (moderate 4-6) Polyethylene Glycol (Miralax) 17 gm PO DAILY PRN PRN Reason: Constipation Rivaroxaban (Xarelto) 20 mg PO DAILY [facility] Senna/Docusate Sodium (Senna Plus) 1 tab PO BID PRN PRN Reason: Constipation Tamsulosin HCl (Flomax) 0.4 mg PO DAILY [facility] Last Admin: 11/10/17 09:11 Dose: 0.4 mg Discontinued Medications Dexamethasone (Dexamethasone) 6 mg PO DAILY [facility] Divalproex Sodium (Divalproex Sodium) 500 mg PO TIDMEALS [facility] Sodium Chloride (Normal Saline) 1,000 mls @ 125 mls/hr IV ASDIRECTED [facility] Last Admin: 11/09/17 17:00 Dose: 125 mls/hr Levothyroxine Sodium 100 mcg/ (Levothyroxine Sodium 75 mcg) 175 mcg PO ONETIME ONE Stop: 11/09/17 16:01 Last Admin: 11/09/17 16:53 Dose: 175 mcg Rivaroxaban (Xarelto) 20 mg PO WITHDINNER [facility] Last Admin: 11/09/17 16:53 Dose: 20 mg - Exam Quality Assessment: Urine Catheter, DVT Prophylaxis General: Alert, Cooperative, No Acute Distress Lungs: Clear to Auscultation, Normal Respiratory Effort Cardiovascular: Regular Rate, Regular Rhythm, No Murmurs GI/Abdominal Exam: Soft, Non-Tender, No Organomegaly, No Distention Extremities: Non-Tender, No Pedal Edema Skin: Warm, Dry - Problem List Review Problem List Initiated/Reviewed/Updated: Yes - My Orders Last 24 Hours: My Active Orders 11/10/17 11:12 Convert IV to Saline Lock [OM.PC] Routine 11/10/17 11:13 Remove Swan Catheter [Urinary Catheter Removal] [RC] Per Unit Routine 11/10/17 14:00 HGB [HEMOGLOBIN] [HEME] Stat LACTIC ACID [CHEM] Stat 11/11/17 05:00 BASIC METABOLIC PANEL,BMP [CHEM] Timed CBC WITH AUTO DIFF [HEME] Timed MAGNESIUM [CHEM] Timed - Plan Plan:: ASSESSMENT AND PLAN - Pancytopenia - presumably secondary to chemotherapy. Hemoglobin this morning 6.7 and these currently receiving transfusion of one unit of red blood cells -Repeat hemoglobin this afternoon, and CBC in a.m. -Transfuse if hemoglobin less than 7 or platelets less than 10,000 -Broad-spectrum antibiotics if he spikes a fever Generalized weakness - likely multifactorial in the setting of chemotherapy for metastatic lung cancer as well as a contribution from anemia and slow deconditioning. 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 Most recent chemotherapy was about one week ago. At this point the patient feels like he wants to continue with his chemotherapy. -Outpatient follow-up Insulin-dependent diabetes mellitus - sugars have slowly been decreasing with morning blood sugar around 100 today. His has been cutting back on the amount of insulin he's been getting as the sugars have been declining. -Decrease bedtime dose of long-acting insulin to 25 units -3 units scheduled with meals -Low-dose sliding scale History of DVT - chronically anticoagulated. -Continue DOAC Maintenance issues - - DVT prophylaxis - rivaroxaban - GI prophylaxis - not indicated - Nutrition - regular - Swan catheter - placed in the emergency room because of profound weakness CODE STATUS - DNR/DNI Admission justification - This patient will be admitted for inpatient services and is medically appropriate meeting medical necessity for inpatient admission as outlined in my documentation. I reasonably expect the patient will require inpatient services that span a period time over 2 midnights. I reasonably expect this patient to be discharged or transferred within 96 hours [facility] Patient is weak, dehydrated and has multiple laboratory abnormalities. I do not anticipate improvement/resolution of difficulties in less than 2 days. Disposition - anticipate discharge possibly to home with home care versus intermediate depending on strengthening Primary care physician - Dr Epps
[2017-11-10] MEDS: Rivaroxaban 10 MG Tab PO SCH (11:34)
[2017-11-10] MEDS ORDERED: Lactated Ringers 1,000 ML IV SCH ×2 (15:00→19:00)
[2017-11-10] MEDS ORDERED: Divalproex Sodium Delayed-Release 250 MG Tab.CR PO SCH (18:00)
[2017-11-10] MEDS: Melatonin 3 MG Tab PO SCH (22:10)
[2017-11-10] MEDS: Latanoprost 0.005% Ophth Soln 2.5 ML Bottle EYEBOTH SCH (22:10)
[2017-11-10] MEDS: Insulin Detemir 100 Units/ML 3 ML Pen SUBCUT SCH (22:14)
[2017-11-11] MEDS: Divalproex Sodium Delayed-Release 250 MG Tab.CR PO SCH ×3 (07:44→17:15)
[2017-11-11] MEDS: Dexamethasone 4 MG Tab PO SCH ×2 (07:44→17:16)
[2017-11-11] MEDS: Insulin Aspart 100 Units/ML 3 ML Pen SUBCUT SCH ×7 (07:50→21:33)
[2017-11-11] MEDS: Folic Acid 1 MG Tab PO SCH (08:39)
[2017-11-11] MEDS: Rivaroxaban 10 MG Tab PO SCH (08:40)
[2017-11-11] MEDS: Tamsulosin 0.4 MG Cap.ER PO SCH (08:40)
[2017-11-11] MEDS ORDERED: Lactated Ringers 1,000 ML IV SCH (17:15)
--- NOTE | 2017-11-11 17:22 | PCM.PN ---
- General Info Date of Service: 11/11/17 Subjective Update: This patient has been stable since yesterday, lactic acid remains elevated but improved over the past 24 hours with further hydration. Elevation in lactic acid level is likely multifactorial related to dehydration and anemia causing poor tissue perfusion. There is no evidence of active infection or sepsis at the present time. He remains very confused and is unable to provide significant information concerning symptoms or review of systems - Patient Data Vitals - Most Recent: Last Vital Signs Temp 95.5 F 11/11/17 10:56 Pulse 54 L 11/11/17 10:56 Resp 16 11/11/17 10:56 BP 128/66 11/11/17 10:56 Pulse Ox 96 11/11/17 10:56 Weight - Most Recent: 192 lb 15.988 oz I&O - Last 24 Hours: Intake & Output 11/11/17 11/11/17 11/11/17 06:59 14:59 22:59 Intake Total 430 Balance 430 Lab Results Last 24 Hours: Laboratory Results - last 24 hr 11/10/17 11/11/17 11/11/17 Range/Units 06:05 04:45 04:45 WBC 4.1 L (4.5-11.0) K/uL RBC 3.03 L (4.30-5.90) M/uL Hgb 9.9 L D (12.0-15.0) g/dL Hct 28.9 L (40.0-54.0) % MCV 95 (80-98) fL MCH 33 H (27-31) pg MCHC 34 (32-36) % Plt Count 36 L (150-400) K/uL Neut % (Auto) 69 H (36-66) % Lymph % (Auto) 20 L (24-44) % [place] % (Auto) 12 H (2-6) % Eos % (Auto) 0 L (2-4) % Baso % (Auto) 0 (0-1) % Sodium 141 (140-148) mmol/L Potassium 4.1 (3.6-5.2) mmol/L Chloride 108 (100-108) mmol/L Carbon Dioxide 26 (21-32) mmol/L Anion Gap 7.3 (5.0-14.0) mmol/L BUN 18 (7-18) mg/dL Creatinine 0.7 L (0.8-1.3) mg/dL Est Cr Clr Drug Dosing 103.30 mL/min Estimated GFR (MDRD) > 60 (>60) Glucose 207 H (74-106) mg/dL Lactic Acid (0.4-2.0) mmol/L Calcium 9.2 (8.5-10.1) mg/dL Magnesium 2.0 (1.8-2.4) mg/dL Crossmatch See Detail 11/11/17 Range/Units 04:45 WBC (4.5-11.0) K/uL RBC (4.30-5.90) M/uL Hgb (12.0-15.0) g/dL Hct (40.0-54.0) % MCV (80-98) fL MCH (27-31) pg MCHC (32-36) % Plt Count (150-400) K/uL Neut % (Auto) (36-66) % Lymph % (Auto) (24-44) % [place] % (Auto) (2-6) % Eos % (Auto) (2-4) % Baso % (Auto) (0-1) % Sodium (140-148) mmol/L Potassium (3.6-5.2) mmol/L Chloride (100-108) mmol/L Carbon Dioxide (21-32) mmol/L Anion Gap (5.0-14.0) mmol/L BUN (7-18) mg/dL Creatinine (0.8-1.3) mg/dL Est Cr Clr Drug Dosing mL/min Estimated GFR (MDRD) (>60) Glucose (74-106) mg/dL Lactic Acid 3.8 H (0.4-2.0) mmol/L Calcium (8.5-10.1) mg/dL Magnesium (1.8-2.4) mg/dL Crossmatch Med Orders - Current: Current Medications Acetaminophen (Tylenol) 650 mg PO Q4H PRN PRN Reason: Pain (Mild 1-3)/fever Dexamethasone (Dexamethasone) 4 mg PO BIDAC [facility] Last Admin: 11/11/17 07:44 Dose: 4 mg Divalproex Sodium (Divalproex Sodium) 500 mg PO TIDMEALS [facility] Last Admin: 11/11/17 11:52 Dose: 500 mg Folic Acid (Folic Acid) 1 mg PO DAILY [facility] Last Admin: 11/11/17 08:39 Dose: 1 mg Haloperidol Lactate (Haldol) 1 mg IVPUSH Q2H PRN PRN Reason: Agitation Last Admin: 11/09/17 17:22 Dose: 1 mg Lactated Ringer's (Ringers, Lactated) 1,000 mls @ 60 mls/hr IV ASDIRECTED [facility] Insulin Aspart (Novolog) 3 unit SUBCUT TIDMEALS [facility] Last Admin: 11/11/17 11:37 Dose: 3 units Insulin Aspart (Novolog) 0 unit SUBCUT QIDACANDBED [facility]; Protocol Last Admin: 11/11/17 11:37 Dose: 1 unit Insulin Detemir (Levemir) 25 unit SUBCUT BEDTIME [facility] Last Admin: 11/10/17 22:14 Dose: 25 units Latanoprost (Xalatan 0.005% Ophth Soln) 0 ml EYEBOTH BEDTIME [facility] Last Admin: 11/10/17 22:10 Dose: Not Given Levothyroxine Sodium 100 mcg/ (Levothyroxine Sodium 75 mcg) 175 mcg PO ACBREAKFAST [facility] Last Admin: 11/11/17 07:44 Dose: 175 mcg Magnesium Hydroxide (Milk Of Magnesia) 30 ml PO Q12H PRN PRN Reason: Constipation Melatonin (Melatonin) 9 mg PO BEDTIME [facility] Last Admin: 11/10/17 22:10 Dose: Not Given Metoprolol Succinate 50 mg/ (Metoprolol Succinate 25 mg) 75 mg PO DAILY [facility] Last Admin: 11/11/17 08:41 Dose: 75 mg Ondansetron HCl (Zofran Odt) 4 mg PO Q6H PRN PRN Reason: Nausea able to take PO Ondansetron HCl (Zofran) 4 mg IV Q6H PRN PRN Reason: Nausea/Vomiting Oxycodone HCl (Oxycodone) 5 mg PO Q4H PRN PRN Reason: Pain (moderate 4-6) Polyethylene Glycol (Miralax) 17 gm PO DAILY PRN PRN Reason: Constipation Rivaroxaban (Xarelto) 20 mg PO DAILY [facility] Last Admin: 11/11/17 08:40 Dose: 20 mg Senna/Docusate Sodium (Senna Plus) 1 tab PO BID PRN PRN Reason: Constipation Tamsulosin HCl (Flomax) 0.4 mg PO DAILY [facility] Last Admin: 11/11/17 08:40 Dose: 0.4 mg Discontinued Medications Dexamethasone (Dexamethasone) 6 mg PO DAILY [facility] Divalproex Sodium (Divalproex Sodium) 500 mg PO TIDMEALS [facility] Sodium Chloride (Normal Saline) 1,000 mls @ 125 mls/hr IV ASDIRECTED [facility] Last Admin: 11/09/17 17:00 Dose: 125 mls/hr Lactated Ringer's (Ringers, Lactated) 1,000 mls @ 250 mls/hr IV ASDIRECTED [facility] Stop: 11/10/17 19:01 Lactated Ringer's (Ringers, Lactated) 1,000 mls @ 125 mls/hr IV ASDIRECTED [facility] Levothyroxine Sodium 100 mcg/ (Levothyroxine Sodium 75 mcg) 175 mcg PO ONETIME ONE Stop: 11/09/17 16:01 Last Admin: 11/09/17 16:53 Dose: 175 mcg Rivaroxaban (Xarelto) 20 mg PO WITHDINNER [facility] Last Admin: 11/09/17 16:53 Dose: 20 mg - Exam Quality Assessment: DVT Prophylaxis General: Cooperative, No Acute Distress Lungs: Clear to Auscultation, Normal Respiratory Effort Cardiovascular: Regular Rate, Regular Rhythm, No Murmurs GI/Abdominal Exam: Soft, Non-Tender, No Organomegaly, No Distention Extremities: Non-Tender, No Pedal Edema Skin: Warm, Dry, Intact - Problem List Review Problem List Initiated/Reviewed/Updated: Yes - My Orders Last 24 Hours: My Active Orders 11/11/17 17:15 Lactated Ringers [Ringers, Lactated] 1,000 ml IV ASDIRECTED 11/12/17 05:00 BASIC METABOLIC PANEL,BMP [CHEM] Timed CBC WITH AUTO DIFF [HEME] Timed LACTIC ACID [CHEM] Timed - Plan Plan:: ASSESSMENT AND PLAN - Pancytopenia - presumably secondary to chemotherapy. Hemoglobin improve following transfusion of 2 units of red blood cells -Repeat hemoglobin in a.m. -Broad-spectrum antibiotics if he spikes a fever Generalized weakness - likely multifactorial in the setting of chemotherapy for metastatic lung cancer as well as a contribution from anemia and slow deconditioning. 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 Most recent chemotherapy was about one week ago. At this point the patient feels like he wants to continue with his chemotherapy. -Outpatient follow-up Insulin-dependent diabetes mellitus - sugars have slowly been decreasing with morning blood sugar around 100 today. His has been cutting back on the amount of insulin he's been getting as the sugars have been declining. -Decrease bedtime dose of long-acting insulin to 25 units -3 units scheduled with meals -Low-dose sliding scale History of DVT - chronically anticoagulated. -Continue DOAC Maintenance issues - - DVT prophylaxis - rivaroxaban - GI prophylaxis - not indicated - Nutrition - regular - Wsan catheter - placed in the emergency room because of profound weakness CODE STATUS - DNR/DNI Admission justification - This patient will be admitted for inpatient services and is medically appropriate meeting medical necessity for inpatient admission as outlined in my documentation. I reasonably expect the patient will require inpatient services that span a period time over 2 midnights. I reasonably expect this patient to be discharged or transferred within 96 hours [facility] Patient is weak, dehydrated and has multiple laboratory abnormalities. I do not anticipate improvement/resolution of difficulties in less than 2 days. Disposition - anticipate discharge possibly to home with home care versus [facility] depending on strengthening Primary care physician - Dr Epps
[2017-11-11] MEDS: Insulin Detemir 100 Units/ML 3 ML Pen SUBCUT SCH (21:34)
[2017-11-11] MEDS: Latanoprost 0.005% Ophth Soln 2.5 ML Bottle EYEBOTH SCH (21:36)
[2017-11-11] MEDS: Melatonin 3 MG Tab PO SCH (21:37)
[2017-11-12] MEDS: Insulin Aspart 100 Units/ML 3 ML Pen SUBCUT SCH ×4 (07:52→12:28)
[2017-11-12] MEDS: Divalproex Sodium Delayed-Release 250 MG Tab.CR PO SCH ×2 (08:05→12:31)
[2017-11-12] MEDS: Tamsulosin 0.4 MG Cap.ER PO SCH (08:05)
[2017-11-12] MEDS: Folic Acid 1 MG Tab PO SCH (08:05)
[2017-11-12] MEDS: Dexamethasone 4 MG Tab PO SCH (08:05)
[2017-11-12] MEDS: Rivaroxaban 10 MG Tab PO SCH (08:06)
[2017-11-12] MEDS ORDERED: Bisacodyl 10 MG Supp RECTAL ONE (10:31)
[2017-11-12 11:16] VITALS: BP 118/104
--- NOTE | 2017-11-12 13:01 | PCM.DCSUM1 ---
Discharge Summary - Hospital Course Brief History: As patient is a 72-year-old gentleman who was admitted through the emergency department because of progressive weakness thought to be secondary to recent chemotherapy and underlying metastatic lung disease. - Discharge Data Discharge Date: 11/12/17 Discharge Disposition: DC/Tfer to SNF 03 Condition: Poor - Discharge Diagnosis/Problem(s) (1) Weakness SNOMED Code(s): 17010793 ICD Code: R53.1 - WEAKNESS Status: Acute (2) Pancytopenia SNOMED Code(s): 557000679 ICD Code: D61.818 - OTHER PANCYTOPENIA Status: Acute (3) Diabetes mellitus, insulin dependent (IDDM), controlled SNOMED Code(s): 44370187 ICD Code: E11.9 - TYPE 2 DIABETES MELLITUS WITHOUT COMPLICATIONS; Z79.4 - RIBBER (CURRENT) USE OF INSULIN Status: Chronic (4) Metastatic primary lung cancer SNOMED Code(s): 85397605, 148111346 ICD Code: C34.90 - MALIGNANT NEOPLASM OF UNSP PART OF UNSP BRONCHUS OR LUNG Status: Chronic Qualifiers: Laterality: left Qualified Code(s): C34.92 - Malignant neoplasm of unspecified part of left bronchus or lung (5) Mass of cerebral hemisphere SNOMED Code(s): 325037654 ICD Code: G93.9 - DISORDER OF BRAIN, UNSPECIFIED Status: Chronic (6) Mass of left lung SNOMED Code(s): 931511105 ICD Code: R91.8 - OTHER NONSPECIFIC ABNORMAL FINDING OF LUNG FIELD Status: Chronic - Patient Summary/Data Consults: Consultations 11/09/17 15:03 PT Evaluation and Treatment [CONS] Routine Please Evaluate and Treat. PT Reason for Consult: Strengthening This query below is only for informational purposes and is not editable. 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 He is not very talkative and says he feels fine so most of his history is gathered from his . She reports that he has been slowly going downhill over several months. He has become progressively weak and had intermittent episodes of agitation. His most recent chemotherapy was about one week ago. He has had previous radiation to his brain for metastatic lung cancer. On the day prior to admission his dexamethasone was reduced from 8-6 mg daily. On the day of admission she reported that he was so weak she could not get him out of bed. She has noticed some difficulty with constipation but otherwise has not noticed much out of the ordinary. He does not currently endorse shortness of breath, chest pain, abdominal pain or nausea. She does not feel like he would be safe at home at this time because he is so weak. She has not noticed any fevers or shaking chills. Workup in the emergency room has revealed pancytopenia presumably secondary to his chemotherapy. He is very weak and unable to stand on his own. There is no sign of infection as of now. Because of his profound weakness he was admitted for hydration with suspected dehydration as well as further monitoring and strengthening. On admission he was given IV fluids for hydration, the following morning his hemoglobin had dropped to 6.7 and he was transfused 2 units of red blood cells. He received physical therapy during hospital stay but for the most part was uncooperative and really did not gain much in the way of strength. Hemoglobin remained stable following transfusion with no evidence of active bleeding. Platelets remained low and the thrombocytopenia was felt to be secondary to his recent chemotherapy and should improve over the next few weeks. He remained confused and occasionally agitated during his hospital stay. I had a few long discussions with his concerning ongoing management, at the present time she would like to try to get him somewhat stronger so that he could receive further chemotherapy. I did explain to her that given his current state it's fairly unlikely that he will show significant improvement in his overall strength and because of his profound weakness would not be a candidate for further chemotherapy. He will be discharged to [facility] for restorative physical therapy and occupational therapy but if he does not improve significantly over the next week I did encourage her to think about hospice cares. Activity will be as tolerated and he will resume his usual diet. Follow- up laboratory studies will be obtained on November 18 for follow-up of anemia and thrombocytopenia. He currently is DNR/DNI. - Patient Instructions Diet: Usual Diet as Tolerated Activity: As Tolerated Other/Special Instructions: Daily physical therapy and occupational therapy while at the [facility]. If no improvement with interventions consider hospice admission in the next week or 2. - Discharge Plan *PRESCRIPTION DRUG MONITORING PROGRAM REVIEWED*: Not Applicable *COPY OF PRESCRIPTION DRUG MONITORING REPORT IN PATIENT NEGAR: Not Applicable Home Medications: Home Meds Insulin Glarg,Human.Rec.Analog [Lantus Solostar] 32 unit SUBCUT BEDTIME [History] Insulin Lispro [Humalog] 4 unit SQ TIDAC 02/20/15 [History] Latanoprost [Xalatan 0.005% Ophth Soln] 1 drop EYEBOTH BEDTIME 02/20/15 [History ] Levothyroxine Sodium [Synthroid] 175 mcg PO DAILY 02/20/15 [History] Nitroglycerin [Nitrostat] 0.4 mg SL ASDIRECTED PRN 02/20/15 [History] Folic Acid 1 tab PO DAILY 08/21/17 [History] Tamsulosin [Flomax] 0.4 mg PO DAILY 08/21/17 [History] Magnesium Chloride [Mag-64] 64 mg PO DAILY 11/09/17 [History] Metoprolol Succinate 75 mg PO DAILY 11/09/17 [History] Rivaroxaban [Xarelto] 20 mg PO DAILY 11/09/17 [History] Dexamethasone 4 mg PO BIDAC tablet 11/12/17 [Rx] Divalproex Sodium 500 mg PO TIDMEALS tab.cr 11/12/17 [Rx] Melatonin 9 mg PO BEDTIME tablet 11/12/17 [Rx] Referrals: Valente Epps MD [Physician] - - Discharge Summary/Plan Comment DC Time >30 min.: No - Patient Data Vitals - Most Recent: Last Vital Signs Temp 95.1 F L 11/12/17 11:00 Pulse 57 L 11/12/17 11:00 Resp 20 11/12/17 11:00 BP 118/104 H 11/12/17 11:00 Pulse Ox 96 11/12/17 11:00 Weight - Most Recent: 192 lb 15.988 oz I&O - Last 24 hours: Intake & Output 11/11/17 11/12/17 11/12/17 22:59 06:59 14:59 Intake Total 430 698 120 Balance 430 698 120 Lab Results - Last 24 hrs: Laboratory Results - last 24 hr 11/12/17 11/12/17 11/12/17 Range/Units 05:00 05:00 05:00 WBC 4.2 L (4.5-11.0) K/uL RBC 2.74 L (4.30-5.90) M/uL Hgb 8.9 L (12.0-15.0) g/dL Hct 26.5 L (40.0-54.0) % MCV 97 (80-98) fL MCH 33 H (27-31) pg MCHC 34 (32-36) % Plt Count 29 L* (150-400) K/uL Neut % (Auto) 70 H (36-66) % Lymph % (Auto) 20 L (24-44) % [place] % (Auto) 9 H (2-6) % Eos % (Auto) 0 L (2-4) % Baso % (Auto) 0 (0-1) % Sodium 139 L (140-148) mmol/L Potassium 4.2 (3.6-5.2) mmol/L Chloride 107 (100-108) mmol/L Carbon Dioxide 24 (21-32) mmol/L Anion Gap 12.2 (5.0-14.0) mmol/L BUN 21 H (7-18) mg/dL Creatinine 0.8 (0.8-1.3) mg/dL Est Cr Clr Drug Dosing 90.39 mL/min Estimated GFR (MDRD) > 60 (>60) Glucose 265 H (74-106) mg/dL Lactic Acid 3.6 H (0.4-2.0) mmol/L Calcium 9.2 (8.5-10.1) mg/dL Med Orders - Current: Current Medications Acetaminophen (Tylenol) 650 mg PO Q4H PRN PRN Reason: Pain (Mild 1-3)/fever Dexamethasone (Dexamethasone) 4 mg PO BIDAC [facility] Last Admin: 11/12/17 08:05 Dose: 4 mg Divalproex Sodium (Divalproex Sodium) 500 mg PO TIDMEALS [facility] Last Admin: 11/12/17 12:31 Dose: 500 mg Folic Acid (Folic Acid) 1 mg PO DAILY [facility] Last Admin: 11/12/17 08:05 Dose: 1 mg Haloperidol Lactate (Haldol) 1 mg IVPUSH Q2H PRN PRN Reason: Agitation Last Admin: 11/09/17 17:22 Dose: 1 mg Lactated Ringer's (Ringers, Lactated) 1,000 mls @ 60 mls/hr IV ASDIRECTED [facility] Last Admin: 11/11/17 17:41 Dose: 60 mls/hr Insulin Aspart (Novolog) 3 unit SUBCUT TIDMEALS [facility] Last Admin: 11/12/17 12:27 Dose: 3 units Insulin Aspart (Novolog) 0 unit SUBCUT QIDACANDBED [facility]; Protocol Last Admin: 11/12/17 12:28 Dose: 3 unit Insulin Detemir (Levemir) 25 unit SUBCUT BEDTIME [facility] Last Admin: 11/11/17 21:34 Dose: 25 units Latanoprost (Xalatan 0.005% Oph Soln) 0 ml EYEBOTH BEDTIME [facility] Last Admin: 11/11/17 21:36 Dose: 1 drop Levothyroxine Sodium 100 mcg/ (Levothyroxine Sodium 75 mcg) 175 mcg PO ACBREAKFAST [facility] Last Admin: 11/12/17 08:05 Dose: 175 mcg Magnesium Hydroxide (Milk Of Magnesia) 30 ml PO Q12H PRN PRN Reason: Constipation Last Admin: 11/12/17 09:38 Dose: 30 ml Melatonin (Melatonin) 9 mg PO BEDTIME [facility] Last Admin: 11/11/17 21:37 Dose: 9 mg Metoprolol Succinate 50 mg/ (Metoprolol Succinate 25 mg) 75 mg PO DAILY [facility] Last Admin: 11/12/17 08:06 Dose: 75 mg Ondansetron HCl (Zofran Odt) 4 mg PO Q6H PRN PRN Reason: Nausea able to take PO Ondansetron HCl (Zofran) 4 mg IV Q6H PRN PRN Reason: Nausea/Vomiting Oxycodone HCl (Oxycodone) 5 mg PO Q4H PRN PRN Reason: Pain (moderate 4-6) Polyethylene Glycol (Miralax) 17 gm PO DAILY PRN PRN Reason: Constipation Rivaroxaban (Xarelto) 20 mg PO DAILY [facility] Last Admin: 11/12/17 08:06 Dose: 20 mg Senna/Docusate Sodium (Senna Plus) 1 tab PO BID PRN PRN Reason: Constipation Last Admin: 11/12/17 09:38 Dose: 1 tab Tamsulosin HCl (Flomax) 0.4 mg PO DAILY [facility] Last Admin: 11/12/17 08:05 Dose: 0.4 mg Discontinued Medications Bisacodyl (Dulcolax) 10 mg RECTAL ONETIME ONE Stop: 11/12/17 10:32 Last Admin: 11/12/17 11:16 Dose: 10 mg Dexamethasone (Dexamethasone) 6 mg PO DAILY [facility] Divalproex Sodium (Divalproex Sodium) 500 mg PO TIDMEALS [facility] Sodium Chloride (Normal Saline) 1,000 mls @ 125 mls/hr IV ASDIRECTED [facility] Last Admin: 11/09/17 17:00 Dose: 125 mls/hr Lactated Ringer's (Ringers, Lactated) 1,000 mls @ 250 mls/hr IV ASDIRECTED [facility] Stop: 11/10/17 19:01 Lactated Ringer's (Ringers, Lactated) 1,000 mls @ 125 mls/hr IV ASDIRECTED [facility] Levothyroxine Sodium 100 mcg/ (Levothyroxine Sodium 75 mcg) 175 mcg PO ONETIME ONE Stop: 11/09/17 16:01 Last Admin: 11/09/17 16:53 Dose: 175 mcg Rivaroxaban (Xarelto) 20 mg PO WITHDINNER [facility] Last Admin: 11/09/17 16:53 Dose: 20 mg - Exam General: Reports: Alert, Cooperative, No Acute Distress Lungs: Reports: Clear to Auscultation, Normal Respiratory Effort Cardiovascular: Reports: Regular Rate, Regular Rhythm, No Murmurs GI/Abdominal Exam: Soft, Non-Tender, No Organomegaly, No Distention Skin: Reports: Warm, Dry
== END 2017-11-12 13:10 | DRG 809 ==
LOC: JP.ED 10:54 → JP.MS 14:18
PROVIDERS: ADMIT Internal Medicine; ATTEND Hospitalist
PROC: 30233N1 Transfusion of Nonautologous Red Blood Cells into Peripheral Vein, Percutaneous Approach (ICD-10-PCS; principal; 2017-11-10)
DX: D61.810 Antineoplastic chemotherapy induced pancytopenia (principal); C34.92 Malignant neoplasm of unspecified part of left bronchus or lung; C79.31 Secondary malignant neoplasm of brain; C79.51 Secondary malignant neoplasm of bone; Z66 Do not resuscitate; T45.1X5A Adverse effect of antineoplastic and immunosuppressive drugs, initial encounter; E03.9 Hypothyroidism, unspecified; E11.21 Type 2 diabetes mellitus with diabetic nephropathy; Z79.4 Long term (current) use of insulin; I10 Essential (primary) hypertension; F91.9 Conduct disorder, unspecified; E86.0 Dehydration; Z86.718 Personal history of other venous thrombosis and embolism; R53.1 Weakness; Z92.21 Personal history of antineoplastic chemotherapy; Z92.3 Personal history of irradiation; H40.9 Unspecified glaucoma; I25.10 Atherosclerotic heart disease of native coronary artery without angina pectoris; I25.2 Old myocardial infarction; Z95.5 Presence of coronary angioplasty implant and graft; Z79.01 Long term (current) use of anticoagulants; R41.0 Disorientation, unspecified; G93.9 Disorder of brain, unspecified; R91.8 Other nonspecific abnormal finding of lung field; D69.59 Other secondary thrombocytopenia; R45.1 Restlessness and agitation
CPT/HCPCS: 36415; 36430; 80048; 80053; 81001; 82962; 83605; 83735; 84443; 85018; 85025; 85027; 86850; 86900; 86901; 86920; 86922; 99285; A9270-GY; J1630; J7030; J7120; J8540; P9016